=== PATIENT | female | born 1955 | race Caucasian/White ===

== ENCOUNTER 2021-07-27 10:04 | Emergency (ER) | payer MEDICARE ==
[~2021-07-27] VITALS: Ht 165.1 cm; Wt 76.0 kg
[2021-07-27] MEDS ORDERED: ORPHENADRINE CITRATE 60 MG/2 ML VIAL. IM ONE (10:30)
[2021-07-27] MEDS ORDERED: KETOROLAC 60 MG/2 ML VIAL. IM ONE (10:30)
--- NOTE | 2021-07-27 10:51 | PHYS DOC ---
Past History Additional Past Medical Histor: eyes Past Surgical History: Other Additional Past Surgical Histo: eyes Alcohol Use: None General Adult EDM: Chief Complaint: Neck Pain HPI: HPI: Patient is a 61-year-old female presents with right-sided neck pain that radiates down her back. Patient states that she woke up with this pain 10 days ago. Pain is increased with range of motion. Patient states feeling that has been helping as hot showers. Patient is also been taking tramadol with no relief. Denies injury. No other complaints. Patient's history of hypertension. Review of Systems: Review of Systems: ROS At least 10 ROS systems have been reviewed and are negative except as documented in the HPI. General: Negative except as outlined in HPI above. Skin: Negative except as outlined in HPI above. HEENT: Negative except as outlined in HPI above. Neck: Negative except as outlined in HPI above. Respiratory: Negative except as outlined in HPI above.. Cardiovascular: Negative except as outlined in HPI above. Abdomen: Negative except as outlined in HPI above. : Negative except as outlined in HPI above. Back/MSK: Negative except as outlined in HPI above. Neuro: Negative except as outlined in HPI above. Psych: Negative except as outlined in HPI above. Current Medications: Current Meds: Current Medications Medications (Trade) Dose Ordered Sig/Niki Start Time Stop Time Status Last Admin Dose Admin Ketorolac Tromethamine (Toradol Im) 60 mg 1X ONCE 07/27/21 10:30 07/27/21 10:31 Orphenadrine Citrate (Norflex) 60 mg 1X ONCE 07/27/21 10:30 07/27/21 10:31 Allergies: Allergies: Allergies Coded Allergies Type Severity Reaction Last Updated Verified No Known Drug Allergies 07/27/21 No Physical Exam: PE: Constitutional: Well developed, well nourished, no acute distress, non-toxic appearance. [] HENT: Normocephalic, atraumatic, bilateral external ears normal, oropharynx moist, no oral exudates, nose normal. [] Eyes: PERRLA, EOMI, conjunctiva normal, no discharge. [] Neck: Neck tenderness, pain with turning head to the right side, muscle tightness on right side on assessment Cardiovascular:Heart rate regular rhythm, no murmur [] Lungs & Thorax: Bilateral breath sounds clear to auscultation [] Abdomen: Bowel sounds normal, soft, no tenderness, no masses, no pulsatile masses. [] Skin: Warm, dry, no erythema, no rash. [] Back: Right-sided thoracic tenderness, no CVA tenderness. [] Extremities: No tenderness, no cyanosis, no clubbing, ROM intact, no edema. [] Neurologic: Alert and oriented X 3, normal motor function, normal sensory function, no focal deficits noted. [] Psychologic: Affect normal, judgement normal, mood normal. [] Current Patient Data: Vital Signs: Vital Signs Date Time Temp Pulse Resp B/P (MAP) Pulse Ox O2 Delivery O2 Flow Rate FiO2 07/27/21 10:16 98.2 102 16 167/87 (113) 99 Room Air EKG: EKG: [] Radiology/Procedures: Radiology/Procedures: []XR CERVICAL SPINE 2-3V, XR THORACIC SPINE 3VIEWS History: PAIN X 10 DAYS, LEFT SIDE Comparison: None. Technique: 3 views of the cervical spine. 3 views of the thoracic spine Findings: No evidence of fracture. No destructive osseous lesion. Mild anterolisthesis of C4 on C5. Multilevel cervical disc and facet disease greatest at C5-C6 and C6-C7 where there is severe disc height loss and circumferential osteophytes. Advanced multilevel cervical facet hypertrophy. No thoracic spondylolisthesis. Multilevel thoracic spine marginal osteophytes. Thoracic disc heights are relatively maintained. Surgical clips in the right neck. Prominent left spinal and hilar calcified granulomas. Calcifications of the aortic arch. Left upper quadrant chain sutures and surgical clips in the abdomen. IMPRESSION: 1. Multilevel advanced degenerative changes in the cervical spine. 2. No acute osseous abnormality in the cervical and thoracic spine. Electronically signed by: Angel Shoemaker MD (07/27/2021 12:19 PM) [id number] Heart Score: C/O Chest Pain: No Risk Factors: Risk Factors: DM, Current or recent (<one month) smoker, HTN, HLP, family history of CAD, obesity. Risk Scores: Score 0 - 3: 2.5% MACE over next 6 weeks - Discharge Home Score 4 - 6: 20.3% MACE over next 6 weeks - Admit for Clinical Observation Score 7 - 10: 72.7% MACE over next 6 weeks - Early Invasive Strategies Course & Med Decision Making: Course & Med Decision Making Pertinent Labs and Imaging studies reviewed. (See chart for details) [] 61-year-old female presents with right-sided neck pain radiates to her thoracic. Patient woke up with discomfort 10 days ago and has not able to relieve the pain at home. Patient denies injury. Range of motion is intact but produces pain when turning head to the right. Imaging of thoracic and cervical spine obtained. Patient's pain treated with IM Toradol, IM Norflex. Patient reports that pain has improved after medication but still has pain with range of motion of neck. Cervical spine and thoracic imaging was unremarkable. Discussed results with patient. Advised patient that sending patient home with a prescription for Flexeril and instructions to take ibuprofen. Patient should follow-up with her PCP for further management if pain continues. Discussed return precautions with patient. Patient verbalized understanding of discharge instructions. Carlos Disclaimer: Carlos Disclaimer: This electronic medical record was generated, in whole or in part, using a voice recognition dictation system. Departure Departure: Impression: Primary Impression: Neck pain Disposition: HOME / SELF CARE / HOMELESS Condition: STABLE Referrals: PCP,NO (PCP) Patient Instructions: Soft Tissue Injury of the Neck, [id number] Additional Instructions: You are seen emergency room for neck pain. You were given medication while in the ER which improved your pain. Sending you with prescription for a muscle relaxer. Continue taking ibuprofen as well to help with discomfort. You need to follow-up with your PCP for further management if pain does not resolve. Return to the emergency room if you have worsening symptoms or concerns. EMERGENCY DEPARTMENT GENERAL DISCHARGE INSTRUCTIONS Thank you for coming to [facility] (ED) today and trusting us with you care. We trust that you had a positivie experience in our Emergency Department. If you wish to speak to the department management, you may call the director at [phone]. YOUR FOLLOW UP INSTRUCTIONS ARE FOLLOWS: 1. Do you have a private Doctor? If you do not have a private doctor, please ask for a resource list of physicians or clinics that may be able to assist you with follow up care. 2. The Emergency Physician has interpreted your x-rays. The X-Ray specialist will also review them. If there is a change in the findings, you will be notified in 48 hours when at all possible. 3. A lab test or culture has been done, your results will be reviewed and you will be notified if you need a change in treatment. ADDITIONAL INSTRUCTIONS AND INFORMATION: 1. Your care today has been supervised by a physician who is specially trained in emergency care. Many problems require more than one evaluation for a complete diagnosis and treatment. We recommend that you schedule your follow up appointment as recommended to ensure complete treatment of you illness or injury. If you are unable to obtain follow up care and continue to have a problem, or if your condition worsens, we recommend that you return to the ED. 2. We are not able to safely determine your condition over the phone nor are we able to give sound medical advice over the phone. For these safety reasons, if you call for medical advice we will ask you to come to the ED for further evaluation. 3. If you have any questions regarding these discharge instructions please call the ED at [phone]. SAFETY INFORMATION: In the interest of safety, wellness, and injury prevention; we encourage you to wear your sealbelt, if you smoke; quite smoking, and we encourage family to use a protective helmet for bicycling and other sporting events that present an increased risk for head injury. IF YOUR SYMPTOMS WORSEN OR NEW SYMPTOMS DEVELOP, OR YOU HAVE CONCERNS ABOUT YOUR CONDITION; OR IF YOUR CONDITION WORSENS WHILE YOU ARE WAITING FOR YOUR FOLLOW UP APPOINTMENT; EITHER CONTACT YOUR PRIMARY CARE DOCTOR, THE PHYSICIAN WHOSE NAME AND NUMBER YOU WERE GIVEN, OR RETURN TO THE ED IMMEDIATELY. Scripts Cyclobenzaprine Hcl (CYCLOBENZAPRINE HCL) 10 Mg Tablet 1 TAB PO TID PRN for PAIN for 10 Days, #30 TAB 0 Refills Prov: CLEO MOTLEY APRN 07/27/21 CLEO MOTLEY APRN Jul 27, 2021 10:51
--- NOTE | 2021-07-27 13:13 | RAD ---
XR CERVICAL SPINE 2-3V, XR THORACIC SPINE 3VIEWS History: PAIN X 10 DAYS, LEFT SIDE Comparison: None. Technique: 3 views of the cervical spine. 3 views of the thoracic spine Findings: No evidence of fracture. No destructive osseous lesion. Mild anterolisthesis of C4 on C5. Multilevel cervical disc and facet disease greatest at C5-C6 and C6-C7 where there is severe disc hei ght loss and circumferential osteophytes. Advanced multilevel cervical facet hypertrophy. No thoracic spondylolisthesis. Multilevel thoracic spine marginal osteophytes. Thoracic disc heights are relatively maintained. Surgical clips in the right neck. Prominent left spinal and hilar calcified granulomas. Calcification s of the aortic arch. Left upper quadrant chain sutures and surgical clips in the abdomen. IMPRESSION: 1. Multilevel advanced degenerative changes in the cervical spine. 2. No acute osseous abnormality in the cervical and thoracic spine. Electronically signed by: Angel Shoemaker MD (07/27/2021 12:19 PM) [id number]
[2021-07-27 13:14] VITALS: BP 159/88
[2021-07-27] MEDS ORDERED: CYCL10TA19 PO (13:31)
== END 2021-07-27 14:03 | disposition home or self-care (01) ==
LOC: EDBD 10:04 → ER 10:04
DX: M54.2 Cervicalgia (principal); I10 Essential (primary) hypertension
CPT/HCPCS: 72040; 72072; 96372; 99284; J1885; J2360